=== PATIENT | male | born 1985 | race African-American/Black ===

== ENCOUNTER 2016-12-08 17:47 | Emergency (ER) | payer MEDICAID ==
[~2016-12-08] VITALS: Ht 188 cm; Wt 127.0 kg
[~2016-12-08 17:47] MED LIST: AMOX875 PO; HYDR-3533 PO
[2016-12-08 17:49] VITALS: BP 128/68; PULSE 120; RESP 24; TEMP 100; O2SAT 95
[2016-12-08] MEDS ORDERED: SODIUM CHLOR 0.9% 1000 ML INJ 1,000 ML IV SCH (19:08)
[2016-12-08] MEDS ORDERED: ONDANSETRON HCL 4 MG/2 ML VIAL IVP ONE (19:15)
[2016-12-08] MEDS ORDERED: LIDO1CRE (19:24)
[2016-12-08] MEDS ORDERED: MAPA500C PO (19:24)
[2016-12-08] MEDS ORDERED: ICY2.5GE TOPICAL (19:24)
[2016-12-08] MEDS ORDERED: MORPHINE SULFATE 4 MG/ML INJ IV PUSH ONE (19:30)
[2016-12-08 19:37] VITALS: BP 129/89; PULSE 97; RESP 18; TEMP 99.3; O2SAT 96
[2016-12-08 19:49] LABS: AUTOMATED NEUTROPHIL # 3.6 TH/MM3 (1.8-7.7); BASOPHIL % 0.3 % (0.0-2.0); EOSINOPHIL # 0.2 TH/MM3 (0-0.4); EOSINOPHIL % 2.4 % (0.0-4.0); HEMATOCRIT 39.5 % (39.0-51.0); HEMO FLAGS DIFF FINAL; LYMPHOCYTE # 1.8 TH/MM3 (1.0-4.8); MEAN CORPUSCULAR HEMOGLOBIN 31.2 PG (27.0-34.0); MEAN CORPUSCULAR HGB CONC 33.5 % (32.0-36.0); MONO % 15.5 % (0.0-8.0); NEUT % 54.8 % (16.0-70.0); PLATELET COUNT 252 TH/MM3 (150-450); RED BLOOD COUNT 4.25 MIL/MM3 (4.50-5.90); RED CELL DISTRIBUTION WIDTH 13.9 % (11.6-17.2); WHITE BLOOD COUNT 6.6 TH/MM3 (4.0-11.0)
[2016-12-08 19:59] LABS: APTT (PATIENT) 29.5 SEC (24.3-30.1); INTERNATIONAL NORMALIZED RATIO 0.9 RATIO; PROTHROMBIN TIME - PATIENT 9.9 SEC (9.8-11.6)
[2016-12-08 20:11] LABS: ALT (GPT) 28 U/L (12-78); ANION GAP 9 MEQ/L (5-15); AST (GOT) 15 U/L (15-37); BICARBONATE 28.4 MEQ/L (21.0-32.0); BLOOD UREA NITROGEN 15 MG/DL (7-18); CHLORIDE 103 MEQ/L (98-107); GLOMERULAR FILTRATION RATE 78 ML/MIN (>89); POTASSIUM 3.4 MEQ/L (3.5-5.1); SODIUM (NA) 140 MEQ/L (136-145)
[2016-12-08 20:14] LABS: ALKALINE PHOSPHATASE 65 U/L (45-117); TOTAL BILIRUBIN ADULT 0.4 MG/DL (0.2-1.0)
[2016-12-08] MEDS ORDERED: BENT20TA PO (20:16)
[2016-12-08] MEDS ORDERED: ZOFR4TAB PO (20:16)
--- NOTE | 2016-12-08 20:19 | PD ---
Data Data Last Documented VS Vital Signs Date Time Temp Pulse Resp B/P Pulse Ox O2 Delivery O2 Flow Rate FiO2 12/08/16 19:37 99.3 97 18 129/89 96 Room Air Orders Complete Blood Count With Diff (12/08/16 19:08) Comprehensive Metabolic Panel (12/08/16 19:08) Lipase (12/08/16 19:08) Lactic Acid (12/08/16 19:08) Prothrombin Time / Inr (Pt) (12/08/16 19:08) Act Partial Throm Time (Ptt) (12/08/16 19:08) Urinalysis - C+S If Indicated (12/08/16 19:08) Ct Abd/Pel W Iv Contrast(Rout) (12/08/16 19:08) Iv Access Insert/Monitor (12/08/16 19:08) Ecg Monitoring (12/08/16 19:08) Oximetry (12/08/16 19:08) Ondansetron Inj (Zofran Inj) (12/08/16 19:15) Sodium Chlor 0.9% 1000 Ml Inj (Ns 1000 M (12/08/16 19:08) Influenzae A/B Antigen (12/08/16 19:18) Morphine Inj (Morphine Inj) (12/08/16 19:30) Labs Laboratory Tests Test 12/08/16 19:33 White Blood Count 6.6 TH/MM3 Red Blood Count 4.25 MIL/MM3 Hemoglobin 13.2 GM/DL Hematocrit 39.5 % Mean Corpuscular Volume 93.0 FL Mean Corpuscular Hemoglobin 31.2 PG Mean Corpuscular Hemoglobin 33.5 % Concent Red Cell Distribution Width 13.9 % Platelet Count 252 TH/MM3 Mean Platelet Volume 7.7 FL Neutrophils (%) (Auto) 54.8 % Lymphocytes (%) (Auto) 27.0 % Monocytes (%) (Auto) 15.5 % Eosinophils (%) (Auto) 2.4 % Basophils (%) (Auto) 0.3 % Neutrophils # (Auto) 3.6 TH/MM3 Lymphocytes # (Auto) 1.8 TH/MM3 Monocytes # (Auto) 1.0 TH/MM3 Eosinophils # (Auto) 0.2 TH/MM3 Basophils # (Auto) 0.0 TH/MM3 CBC Comment DIFF FINAL Differential Comment Prothrombin Time 9.9 SEC Prothromb Time International 0.9 RATIO Ratio Activated Partial 29.5 SEC Thromboplast Time Sodium Level 140 MEQ/L Potassium Level 3.4 MEQ/L Chloride Level 103 MEQ/L Carbon Dioxide Level 28.4 MEQ/L Anion Gap 9 MEQ/L Blood Urea Nitrogen 15 MG/DL Creatinine 1.29 MG/DL Estimat Glomerular Filtration 78 ML/MIN Rate Random Glucose 83 MG/DL Calcium Level 8.5 MG/DL Aspartate Amino Transf 15 U/L (AST/SGOT) Alanine Aminotransferase 28 U/L (ALT/SGPT) Albumin 3.5 GM/DL Lipase 109 U/L [facility] Supervised Visit with MIGUEL: Yes Narrative Course The history, exam, and medical decision-making in the associated midlevel provider note were completed with my assistance. I reviewed and agree with the findings presented. I attest that I had a [id number] encounter with the patient on the same day, and personally performed and documented my assessment and findings in the medical record. *My assessment and Findings: This is a 31-year-old male who presents to the emergency department with several days of copious diarrhea. He says he had 20 non-bloody stools yesterday. He presents to the emergency department with cramping lower abdominal pain. He is tender diffusely on the abdomen. He is febrile. Labs were obtained which demonstrate a normal white blood cell count with a 15% monocytic shift consistent with a viral etiology of his symptoms. I had a conversation with the family regarding the risks versus benefits of CT imaging. They're concerned about the increased risk of radiation, and I have a high suspicion that this is viral. I doubt this is appendicitis as he said no vomiting, his pain is not localized and his symptoms are more diarrheal. He also reports that he has had some sick contacts with GI symptoms. Electrolytes were all reassuring and patient's pain was treated. Patient will be discharged on pain control, ammonium and was instructed to return to the emergency department tomorrow if his pain is not improving for possible CT imaging. Trinidad Grigsby MD Dec 08, 2016 20:19
--- NOTE | 2016-12-08 20:22 | PD ---
HPI Chief Complaint: Abdominal Pain Time Seen by Provider: 20:16 Travel History International Travel<30 days: No Contact w/Intl Traveler<30days: No Traveled to known affect area: No History of Present Illness HPI 31-year-old male that presents to the ED for evaluation of abdominal pain. Per patient she's had abdominal pain for the past 3 days. Per patient he does have sick contacts including her daughter who was recently diagnosed with the flu. Patient hasn't some cough or runny nose. Patient denies any chest pain or shortness of breath. Per patient he has diffuse abdominal discomfort and diarrhea which is liquidy and yellow. Patient also states that his been drinking a lot of alcohol recently and was concerned about peptic ulcer disease. He denies any blood in the stool. No urinary symptoms. No allergies to medication. Patient has had fevers and chills and sweats as well. Patient states that he is not able to eat much because he doesn't have an appetite and he has not vomited but feels nauseous. He denies any recent hospitalization or recent antibiotic use. Denies any recent travel. Per patient the discomfort is 4 out of 10. PFSH Past Medical History Hx Anticoagulant Therapy: No Arthritis: Yes (RHEUMATOID) Cardiovascular Problems: No Chemotherapy: No Cerebrovascular Accident: No Diabetes: No Respiratory: No Influenza Vaccination: No Past Surgical History Other Surgery: Yes (KELOIDS REMOVED FROM CHEST) Social History Alcohol Use: Yes (OCCASIONALLY) Tobacco Use: Yes (10/01 PPD) Substance Use: No Allergies-Medications (Allergen,Severity, Reaction): Coded Allergies: No Known Allergies (Verified , 12/08/16) Reported Meds & Prescriptions Reported Meds & Active Scripts Active Tramadol (Tramadol HCl) 50 Mg Tab 50 Mg PO Q6H PRN Imodium A-D (Loperamide HCl) 2 Mg Cap 2 Mg PO Q6H PRN Bentyl (Dicyclomine HCl) 20 Mg Tab 20 Mg PO TID Zofran (Ondansetron HCl) 4 Mg Tab 4 Mg PO Q6HR PRN Reported Icy Hot Pain Relieving Gel Topical (Menthol Topical) 2.5 % Gel 1 Applic TOPICAL DAILY PRN Mapap (Acetaminophen) 500 Mg Cap 500 Mg PO DAILY PRN Review of Systems General / Constitutional: Positive: Fever, Chills Eyes: No: Diploplia, Blurred Vision, Photophobia, Drainage, Redness, Foreign Body Sensation, Pain, Tearing, Blind Spots, Visual changes, Blindness, Other HENT: Positive: Rhinitis, Congestion, No: Headaches, Vertigo, Lightheadedness , Sore Throat, Rhinorrhea, Nosebleed, Neck Stiffness, Neck Pain, Masses, Gingival Bleeding, Dental Difficulties, Ear Discharge, Earache, Other Cardiovascular: No: Chest Pain or Discomfort, Palpitations, Irregular Rhythm, Tachycardia, Diaphoresis, Syncope, Dyspnea on exertion, Varicosities, Edema, Cyanosis, Varicosities, Phlebitis, Claudication, Other Respiratory: Positive: Cough, No: Shortness of Breath, Wheezing, Sneezing, Orthopnea, Hemoptysis, Stridor, Night Sweats, Pleuritic Pain, Other Gastrointestinal: Positive: Nausea, Diarrhea, Abdominal Pain, No: Vomiting, Hematemesis, Hematochezia, Constipation, Changes in Bowel Habits, Indigestion, Dysphagia, Loss of Appetite, Other Genitourinary: No: Urgency, Frequency, Dysuria, Nocturia, Hematuria, Decreased Urinary Output, Oliguria, Hesitancy, Dribbling, Incontinence, Pelvic Pain, Flank Pain, Dyspareunia, Discharge, Dysmenorrhea, Menorrhagia, Metorrhagia, Vaginal Bleeding, Other Musculoskeletal: No: Myalgias, Arthralgias, Limited ROM, Weakness, Cramping, Edema, Pain, Atrophy, Other Skin: No Rash, No Itching, No Dryness, No Lumps, No Hives, No Change in Pigmentation, No Change in nails, No Alopecia, No Lesions, No Breast Lumps, No Breast Tenderness, No Breast Swelling, No Other Neurologic: No: Weakness, Dizziness, Syncope, Focal Abnormalities, Coordination Problem, Tremor, Ataxia, Headache, Change in Mentation, Slurred Speech, Paresthesia, Incontinence, Seizures, Sensory Disturbance, Other Psychiatric: No: Anxiety, Depression, Suicidal Ideations, Disorder of Thought, Mood Disorder, Substance Abuse, Homicidal Ideation, Other Endocrine: No: Heat Intolerance, Cold Intolerance, Polyuria, Polydipsia, Other Hematologic/Lymphatic: No: Easy Bruising, Lymph Node Enlargement, Other Physical Exam Narrative GENERAL: SKIN: Warm and dry. HEAD: Atraumatic. Normocephalic. EYES: Pupils equal and round. No scleral icterus. No injection or drainage. ENT: No nasal bleeding or discharge. Mucous membranes pink and moist. Tongue is midline. No uvula deviation. TMs are clear with no sign of infection or perforation. No meningeal signs noted. No lymphadenopathy noted. No mastoid tenderness. Nostrils are patent bilaterally with clear mucus noted. No sinus tenderness. NECK: Trachea midline. No JVD. CARDIOVASCULAR: Regular rate and rhythm. No murmurs, S3, S4. RESPIRATORY: No accessory muscle use. Clear to auscultation. Breath sounds equal bilaterally. GASTROINTESTINAL: Abdomen soft, diffusely tender, nondistended. Hepatic and splenic margins not palpable. MUSCULOSKELETAL: Extremities without clubbing, cyanosis, or edema. No obvious deformities. Full range of motion of the upper and lower extremities bilaterally. 2+ pulses bilaterally. NEUROLOGICAL: Awake and alert. No obvious cranial nerve deficits. Motor grossly within normal limits. Five out of 5 muscle strength in the arms and legs. Normal speech. PSYCHIATRIC: Appropriate mood and affect; insight and judgment normal. Data Data Last Documented VS Vital Signs Date Time Temp Pulse Resp B/P Pulse Ox O2 Delivery O2 Flow Rate FiO2 12/08/16 19:37 99.3 97 18 129/89 96 Room Air Orders Complete Blood Count With Diff (12/08/16 19:08) Comprehensive Metabolic Panel (12/08/16 19:08) Lipase (12/08/16 19:08) Lactic Acid (12/08/16 19:08) Prothrombin Time / Inr (Pt) (12/08/16 19:08) Act Partial Throm Time (Ptt) (12/08/16 19:08) Urinalysis - C+S If Indicated (12/08/16 19:08) Iv Access Insert/Monitor (12/08/16 19:08) Ecg Monitoring (12/08/16 19:08) Oximetry (12/08/16 19:08) Ondansetron Inj (Zofran Inj) (12/08/16 19:15) Sodium Chlor 0.9% 1000 Ml Inj (Ns 1000 M (12/08/16 19:08) Influenzae A/B Antigen (12/08/16 19:18) Morphine Inj (Morphine Inj) (12/08/16 19:30) Labs Laboratory Tests Test 12/08/16 19:33 White Blood Count 6.6 TH/MM3 Red Blood Count 4.25 MIL/MM3 Hemoglobin 13.2 GM/DL Hematocrit 39.5 % Mean Corpuscular Volume 93.0 FL Mean Corpuscular Hemoglobin 31.2 PG Mean Corpuscular Hemoglobin 33.5 % Concent Red Cell Distribution Width 13.9 % Platelet Count 252 TH/MM3 Mean Platelet Volume 7.7 FL Neutrophils (%) (Auto) 54.8 % Lymphocytes (%) (Auto) 27.0 % Monocytes (%) (Auto) 15.5 % Eosinophils (%) (Auto) 2.4 % Basophils (%) (Auto) 0.3 % Neutrophils # (Auto) 3.6 TH/MM3 Lymphocytes # (Auto) 1.8 TH/MM3 Monocytes # (Auto) 1.0 TH/MM3 Eosinophils # (Auto) 0.2 TH/MM3 Basophils # (Auto) 0.0 TH/MM3 CBC Comment DIFF FINAL Differential Comment Prothrombin Time 9.9 SEC Prothromb Time International 0.9 RATIO Ratio Activated Partial 29.5 SEC Thromboplast Time Sodium Level 140 MEQ/L Potassium Level 3.4 MEQ/L Chloride Level 103 MEQ/L Carbon Dioxide Level 28.4 MEQ/L Anion Gap 9 MEQ/L Blood Urea Nitrogen 15 MG/DL Creatinine 1.29 MG/DL Estimat Glomerular Filtration 78 ML/MIN Rate Random Glucose 83 MG/DL Lactic Acid Level 0.8 mmol/L Calcium Level 8.5 MG/DL Total Bilirubin 0.4 MG/DL Aspartate Amino Transf 15 U/L (AST/SGOT) Alanine Aminotransferase 28 U/L (ALT/SGPT) Alkaline Phosphatase 65 U/L Total Protein 7.3 GM/DL Albumin 3.5 GM/DL Lipase 109 U/L [facility] Medical Decision Making Medical Screen Exam Complete: Yes Emergency Medical Condition: Yes Medical Record Reviewed: Yes Interpretation(s) CBC & BMP Diagram 12/08/16 19:33 LFts and lipase WNL influenza negative Differential Diagnosis Abdominal pain versus viral illness versus influenza versus gastritis versus Enteritis versus colitis versus viral illness Narrative Course 31-year-old male that presents to the ED for evaluation of abdominal pain and viral illness. Patient was properly examined by me and my attending Dr. Grigsby. Patient appears to have signs and symptoms very consistent what appears to be viral illness. Labs were ordered. Labs were essentially reassuring. Patient was given IV medications with good relief. My attending agrees to this is likely viral illness and recommends against CT scan at this time. Patient was told that if anything worsens she is to come back. Family is agreeable with plan. Patient will be sent home with prescription for tramadol and Imodium. Told to follow closely with PCP. See ED worsening symptoms. I counseled patient to stop drinking alcohol while he is having diarrhea and abdominal pain. Diagnosis Primary Impression: Gastroenteritis Additional Impression: Viral illness Patient Instructions: General Instructions, Narcotic given in the ED Additional Instructions: Liquid diet. Do not drink or drive with taking pain medication. Follow-up with PCP. See ED for any worsening symptoms. Take medications as prescribed. Med/Other Pt SpecificInfo: Prescription(s) given Scripts Tramadol 50 Mg Tab50 Mg PO Q6H PRN (PAIN) #15 TAB Ref 0 Prov:Trinidad Grigsby MD 12/08/16 Loperamide (Imodium A-D)2 Mg Cap2 Mg PO Q6H PRN (DIARRHEA) #30 CAP Ref 0 Prov:Trinidad Grigsby MD 12/08/16 Dicyclomine (Bentyl)20 Mg Tab20 Mg PO TID #20 TAB Prov:Trinidad Grigsby MD 12/08/16 Ondansetron (Zofran)4 Mg Tab4 Mg PO Q6HR PRN (NAUSEA OR VOMITING) #15 TAB Prov:Trinidad Grigsby MD 12/08/16 Disposition: 01 DISCHARGE HOME Condition: Stable Wing Rm Dec 08, 2016 20:22
[2016-12-08] MEDS ORDERED: TRAM50TA PO (20:23)
[2016-12-08] MEDS ORDERED: LOPE7.5C PO (20:23)
== END 2016-12-08 21:39 | disposition home or self-care (01) ==
LOC: NEPE 17:47
DX: K52.9 Noninfective gastroenteritis and colitis, unspecified (principal); B34.9 Viral infection, unspecified; F17.210 Nicotine dependence, cigarettes, uncomplicated
CPT/HCPCS: 80053; 83605; 83690; 85025; 85610; 85730; 87804; 96374; 96375; 99284; J2270; J2405; J7030

== ENCOUNTER 2017-09-26 09:27 | Emergency (ER) | payer MEDICAID ==
[~2017-09-26] VITALS: Ht 188 cm; Wt 115.0 kg
[~2017-09-26 09:27] MED LIST changes: -AMOX875 PO; +BENT20TA PO; -HYDR-3533 PO; +ICY2.5GE TOPICAL; +LOPE7.5C PO; +MAPA500C PO; +TRAM50TA PO; +ZOFR4TAB PO
[2017-09-26 09:29] VITALS: BP 132/79; PULSE 72; RESP 12; TEMP 98.2; O2SAT 98
--- NOTE | 2017-09-26 09:42 | PD ---
HPI Chief Complaint: Hip Injury Time Seen by Provider: 09:41 Travel History International Travel<30 days: No Contact w/Intl Traveler<30days: No Traveled to known affect area: No History of Present Illness HPI 32-year-old male came to the emergency room with history of right hip pain that is chronic in nature. Patient says this time it started this morning. No history of trauma. Patient has history of rheumatoid arthritis and had a accident years ago. He gets flareup of his hip pain every now and then. He points to his right groin area going down into the hip joint. Vital signs are stable. He sometimes takes Meloxicam at home. This morning he took Excedrin. He's been able to walk but says it hurts. Patient denies of any hematuria or fever. No history of nausea vomiting. PFSH Past Medical History Narrative Medical List of his past medical, surgical, social and family history is reviewed from the nursing note. Hx Anticoagulant Therapy: No Arthritis: Yes (RHEUMATOID) Cardiovascular Problems: No Chemotherapy: No Cerebrovascular Accident: No Diabetes: No Respiratory: No Past Surgical History Other Surgery: Yes (KELOIDS REMOVED FROM CHEST) Social History Alcohol Use: Yes (OCCASIONALLY) Tobacco Use: Yes (1 /2 PPD) Substance Use: No Allergies-Medications (Allergen,Severity, Reaction): Coded Allergies: No Known Allergies (Verified Adverse Reaction, Unknown, 09/26/17) Comments No known drug allergies. Reported Meds & Prescriptions Reported Meds & Active Scripts Active Ibuprofen 600 Mg Tab 600 Mg PO Q6H PRN Narrative Medication List of his home medication reviewed from the nursing note. Review of Systems Except as stated in HPI: all other systems reviewed are Neg Musculoskeletal: Positive: Pain Physical Exam Narrative GENERAL: Awake, alert, no obvious distress SKIN: Focused skin assessment warm/dry. HEAD: Atraumatic. Normocephalic. EYES: Pupils equal and round. No scleral icterus. No injection or drainage. ENT: No nasal bleeding or discharge. Mucous membranes pink and moist. NECK: Trachea midline. No JVD. CARDIOVASCULAR: Regular rate and rhythm. No murmur appreciated. RESPIRATORY: No accessory muscle use. Clear to auscultation. Breath sounds equal bilaterally. GASTROINTESTINAL: Abdomen soft, non-tender, nondistended. Hepatic and splenic margins not palpable. MUSCULOSKELETAL: No obvious deformities. No clubbing. No cyanosis. No edema. Good range of motion of the right hip and knee joint. NEUROLOGICAL: Awake and alert. No obvious cranial nerve deficits. Motor grossly within normal limits. Normal speech. PSYCHIATRIC: Appropriate mood and affect; insight and judgment normal. Data Data Last Documented VS Vital Signs Date Time Temp Pulse Resp B/P (MAP) Pulse Ox O2 Delivery O2 Flow Rate FiO2 09/26/17 09:29 98.2 72 12 132/79 (96) 98 Orders Orders Hip, Uni(Ap&Lat) W Ap Pelvis (09/26/17 ) Naproxen (Naprosyn) (09/26/17 09:45) Ed Discharge Order (09/26/17 10:39) [facility] Medical Decision Making Medical Screen Exam Complete: Yes Emergency Medical Condition: Yes Medical Record Reviewed: Yes Differential Diagnosis Arthritis, hip strain, acute on chronic pain Narrative Course 10:47 AM patient was given naproxen in the ER and x-ray of the hip done. X-ray has been read negative by the radiologist. I'll discharge him home. He said he has an appointment on October 04 with his primary care which she needs to keep. Procedures EKG Prior to Arrival: No Diagnosis Primary Impression: Hip pain Qualified Codes: M25.551 - Pain in right hip Additional Impression: acute on chronic pain Referrals: Primary Care Physician Additional Instructions: Please follow-up with your primary care as per the appointment he will already have established. Take the medication as per the prescription direction. Do not take it empty stomach and return to the ER if the condition worsens or any other new concerns. Med/Other Pt SpecificInfo: Prescription(s) given Scripts Ibuprofen (Ibuprofen) 600 Mg Tab 600 MG PO Q6H Y for Pain/Inflammation, #40 TAB 0 Refills Prov: Betsy Hoff MD 09/26/17 Disposition: 01 DISCHARGE HOME Condition: Stable Betsy Hoff MD Sep 26, 2017 09:41
[2017-09-26] MEDS ORDERED: NAPROXEN 500 MG TAB PO ONE (09:45)
--- NOTE | 2017-09-26 10:26 | RADRPT ---
EXAM DATE/TIME: 09/26/2017 10:00 [place] COMPARISON: No previous studies available for comparison. INDICATIONS : Right hip pain for one week, denies trauma, able to ambulate with pain MEDICAL HISTORY : None. SURGICAL HISTORY : None. ENCOUNTER: Initial ACUITY: 1 week PAIN SCORE: 8/10 LOCATION: Right hip FINDINGS: Examination of the right hip was performed with AP Pelvis. The primary and secondary trabecular sharmin trudy of the femoral neck is intact. The hip joint is of normal width without significant sclerosis or bony hypertrophy. The acetabulum is grossly intact. CONCLUSION: 1. Unremarkable radiographs of the right hip. Vj Negron MD on September 26, 2017 at 10:23 Board Certified Radiologist. This report was verified electronically.
[2017-09-26] MEDS ORDERED: IBUP-232 PO (10:41)
== END 2017-09-26 11:03 | disposition home or self-care (01) ==
LOC: NEPD 09:27
DX: M25.551 Pain in right hip (principal); G89.29 Other chronic pain; M06.9 Rheumatoid arthritis, unspecified; F17.200 Nicotine dependence, unspecified, uncomplicated
CPT/HCPCS: 73502; 99283